=== PATIENT | female | born 1960 | race African-American/Black ===

== ENCOUNTER 2017-02-26 16:04 | Emergency (ER) | payer SELFPAY ==
[~2017-02-26] VITALS: Ht 167.6 cm; Wt 85.0 kg
[2017-02-26] MEDS ORDERED: IBUPROFEN 600MG TABLET PO ONE (20:00)
[2017-02-26 20:34] LABS: BASOPHILS % 0.8 % (0.0-2.0); EOSINOPHILS % 1.9 % (0.0-5.0); HEMATOCRIT. 36.7 % (36.0-48.0); HEMOGLOBIN. 12.3 g/dL (12.0-16.0); LYMPHOCYTES % 22.1 % (20.0-50.0); MEAN CORPUSCULAR HEMOGLOBIN 30.6 pg (28.0-32.0); MEAN CORPUSCULAR VOLUME 90.8 fL (81.0-99.0); MEAN PLATELET VOLUME 7.5 fl (7.4-10.4); MONOCYTES % 8.8 % (2.0-8.0); NEUTROPHILS % 66.4 % (40.0-76.0); PLATELET 305 x1000/uL (130-400); RED BLOOD CELL COUNT 4.04 mill/uL (4.2-5.4); RED CELL DISTRIBUTION WIDTH 14.1 % (11.6-14.6)
[2017-02-26 20:37] LABS: CARBON DIOXIDE 28 mEq/L (21-32); CHLORIDE 109 mEq/L (98-107)
[2017-02-26 20:43] LABS: TROPONIN I < 0.02 ng/mL (0.00-0.04)
[2017-02-26 22:11] VITALS: BP 148/90
== END 2017-02-26 22:46 | disposition home or self-care (01) ==
LOC: ER 16:14
DX: S16.1XXA Strain of muscle, fascia and tendon at neck level, initial encounter (principal); I10 Essential (primary) hypertension; Y93.84 Activity, sleeping; F17.210 Nicotine dependence, cigarettes, uncomplicated; Y93.89 Activity, other specified; Y92.89 Other specified places as the place of occurrence of the external cause
CPT/HCPCS: 36415; 71020; 80053; 83880; 84484; 85025; 93005; 99285; 99406

== ENCOUNTER 2025-02-09 08:16 | Emergency (ER) | payer MEDICAID, OTHER ==
[~2025-02-09] VITALS: Ht 167.6 cm; Wt 59.0 kg
[2025-02-09 08:24] VITALS: O2SAT 98
[2025-02-09] MEDS: ACETAMINOPHEN 500MG TABLET PO ONE (08:51)
[2025-02-09] MEDS ORDERED: TOPUD MT (10:00)
[2025-02-09 10:20] VITALS: BP 119/64; PULSE 88; RESP 18; TEMP 36.9; O2SAT 98
== END 2025-02-09 10:37 | disposition home or self-care (01) ==
LOC: ER 08:16
DX: R51.9 Headache, unspecified (principal); I10 Essential (primary) hypertension; F10.90 Alcohol use, unspecified, uncomplicated; Z55.6 Problems related to health literacy; Z79.899 Other long term (current) drug therapy; Z86.73 Personal history of transient ischemic attack (TIA), and cerebral infarction without residual deficits; Y90.9 Presence of alcohol in blood, level not specified
CPT/HCPCS: 99284